=== PATIENT | male | born 1965 | race Caucasian/White ===

== ENCOUNTER 2019-08-07 12:18 | Outpatient (CLI) | payer OTHER | END 2019-08-07 12:19 | disposition critical access hospital (66) | LOC: EMS 12:18 | PROVIDERS: ATTEND Surgery | DX: R41.82 Altered mental status, unspecified (principal) | CPT/HCPCS: A0425; A0429 ==

== ENCOUNTER 2019-08-07 12:41 | Emergency (ER) | payer OTHER ==
[2019-08-07] MEDS ORDERED: SODIUM CHLORIDE 0.9% 1,000 ML IV ONE ×2 (12:58)
[2019-08-07 13:13] LABS: BASOPHILS % (AUTO) 0.4 %; PLT - PLATELET COUNT 80 10^3/uL (130-450)
[2019-08-07 13:18] LABS: LYMPHOCYTES % (AUTO) 12.9 %; MEAN CORPUSCULAR HEMOGLOBIN 25.8 pg (27.0-31.0); MEAN CORPUSCULAR HGB CONC 31.1 g/dL (32.0-36.0); MONOCYTES # (AUTO) 0.6 10^3/uL (0.0-1.0); MONOCYTES % (AUTO) 7.4 %; NEUTROPHILS # (AUTO) 6.3 10^3/uL (1.5-6.6); NEUTROPHILS % (AUTO) 78.5 %; RED BLOOD COUNT 3.88 10^6/uL (4.70-6.10)
--- NOTE | 2019-08-07 13:18 | ED Physician Documentation ---
History of Present Illness - Stated complaint Stated Complaint: MHE - Chief complaint Chief Complaint: Neuro - History obtained from History obtained from: Patient, EMS - History of Present Illness Timing: Unknown Pain level max: 0 Pain level now: 0 - Additonal information Additional information: 54-year-old male was found outside of [address] altered and confused. He was brought here for evaluation. He does not know his medical history or medications. Unclear if he sees a doctor or not. Has open sores on the bilateral lower extremities per EMS. Review of Systems Unable to obtain: AMS, Confused Constitutional: reports: Fever GI: denies: Vomiting PD PAST MEDICAL HISTORY - Past Medical History Other Past Medical History: Unknown - Past Surgical History Other past surgical history: Unknown - Social History Additional Social History: Unknown - Family History Family history: reports: Other (unknown) PD ED PE NORMAL - Vitals Vital signs reviewed: Yes - General General: No acute distress, Well developed/nourished, Other (alert, oriented to person and place) - HEENT HEENT: Atraumatic, PERRL, Ears normal, Moist mucous membranes - Neck Neck: Supple, no meningeal sign, Other (FROM without pain) - Cardiac Cardiac: RRR - Respiratory Respiratory: No respiratory distress, Other (rhonchi B) - Abdomen Abdomen: Soft, Non tender, Non distended - Back Back: No spinal TTP - Derm Derm: Warm and dry, Other (open sores to the B LE. no signs of infection) - Extremities Extremities: No deformity - Neuro Neuro: Other (alert) - Psych Psych: Other (flat) Results - Vitals Vitals: Vital Signs - 24 hr 08/07/19 08/07/19 08/07/19 12:48 13:22 14:07 Temperature 36.9 C 36.3 C L Heart Rate 100 87 Respiratory 20 20 Rate Blood Pressure 120/48 L 112/41 L O2 Saturation 99 97 08/07/19 08/07/19 08/07/19 15:33 15:37 16:00 Temperature 36.5 C Heart Rate 94 98 97 Respiratory 20 20 17 Rate Blood Pressure 104/41 L 114/45 L 112/47 L O2 Saturation 100 100 97 08/07/19 08/07/19 08/07/19 16:30 17:00 18:17 Temperature 37.1 C Heart Rate 101 H 100 101 H Respiratory 18 17 16 Rate Blood Pressure 120/47 L 110/43 L 118/46 L O2 Saturation 98 96 08/07/19 18:21 Temperature 37.1 C Heart Rate 102 H Respiratory 22 Rate Blood Pressure 118/46 L O2 Saturation 98 Oxygen O2 Source Room air - EKG (time done) 1327 Rate: Rate (enter#) (96) Rhythm: NSR [place]: Normal Intervals: Normal [place] QRS: Normal Ischemia: Normal ST segments - Labs Labs: Laboratory Tests 08/07/19 08/07/19 08/07/19 12:50 12:58 12:58 WBC 8.0 RBC 3.88 L Hgb 10.0 L Hct 32.2 L MCV 83.0 MCH 25.8 L MCHC 31.1 L RDW 21.0 H Plt Count 80 L Neut # (Auto) 6.3 Lymph # (Auto) 1.0 L Harmon # (Auto) 0.6 Eos # (Auto) 0.0 Baso # (Auto) 0.0 Absolute Nucleated RBC 0.00 Nucleated RBC % 0.0 PT INR APTT Sodium 135 Potassium 4.2 Chloride 101 Carbon Dioxide 23 Anion Gap 11.0 BUN 67 H Creatinine 1.7 H Estimated GFR (MDRD) 42 L Glucose 135 H Lactic Acid Calcium 8.1 L Total Bilirubin 1.9 H AST 22 ALT 12 Alkaline Phosphatase 41 L Ammonia Total Protein 6.8 Albumin 2.3 L Globulin 4.5 H Albumin/Globulin Ratio 0.5 L Lipase 28 TSH Urine Color Urine Clarity Urine pH Ur Specific [place] Urine Protein Urine Glucose (UA) Urine Ketones Urine Occult Blood Urine Nitrite Urine Bilirubin Urine Urobilinogen Ur Leukocyte Esterase Urine RBC Urine WBC Ur Squamous Epith Cells Amorphous Sediment Urine Bacteria Urine Casts Ur Microscopic Review Urine Culture Comments Salicylates < 6.0 Urine Opiates Screen Ur Oxycodone Screen Urine Methadone Screen Ur Propoxyphene Screen Acetaminophen < 10 L Ur Barbiturates Screen Ur Tricyclics Screen Ur Phencyclidine Scrn Ur Amphetamine Screen U Methamphetamines Scrn U Benzodiazepines Scrn Urine Cocaine Screen U Cannabinoids Screen Ethyl Alcohol < 5.0 Blood Type Blood Type Recheck O POSITIVE 08/07/19 08/07/19 08/07/19 12:58 12:58 12:58 WBC RBC Hgb Hct MCV MCH MCHC RDW Plt Count Neut # (Auto) Lymph # (Auto) Harmon # (Auto) Eos # (Auto) Baso # (Auto) Absolute Nucleated RBC Nucleated RBC % PT 18.8 H INR 1.7 H APTT 30.3 Sodium Potassium Chloride Carbon Dioxide Anion Gap BUN Creatinine Estimated GFR (MDRD) Glucose Lactic Acid 1.7 Calcium Total Bilirubin AST ALT Alkaline Phosphatase Ammonia Total Protein Albumin Globulin Albumin/Globulin Ratio Lipase TSH 2.57 Urine Color Urine Clarity Urine pH Ur Specific [place] Urine Protein Urine Glucose (UA) Urine Ketones Urine Occult Blood Urine Nitrite Urine Bilirubin Urine Urobilinogen Ur Leukocyte Esterase Urine RBC Urine WBC Ur Squamous Epith Cells Amorphous Sediment Urine Bacteria Urine Casts Ur Microscopic Review Urine Culture Comments Salicylates Urine Opiates Screen Ur Oxycodone Screen Urine Methadone Screen Ur Propoxyphene Screen Acetaminophen Ur Barbiturates Screen Ur Tricyclics Screen Ur Phencyclidine Scrn Ur Amphetamine Screen U Methamphetamines Scrn U Benzodiazepines Scrn Urine Cocaine Screen U Cannabinoids Screen Ethyl Alcohol Blood Type Blood Type Recheck 08/07/19 08/07/19 08/07/19 14:08 16:43 16:55 WBC RBC Hgb Hct MCV MCH MCHC RDW Plt Count Neut # (Auto) Lymph # (Auto) Harmon # (Auto) Eos # (Auto) Baso # (Auto) Absolute Nucleated RBC Nucleated RBC % PT INR APTT Sodium Potassium Chloride Carbon Dioxide Anion Gap BUN Creatinine Estimated GFR (MDRD) Glucose Lactic Acid Calcium Total Bilirubin AST ALT Alkaline Phosphatase Ammonia 10.4 Total Protein Albumin Globulin Albumin/Globulin Ratio Lipase TSH Urine Color BROWN Urine Clarity CLOUDY Urine pH 5.0 Ur Specific [place] 1.025 Urine Protein 30 H Urine Glucose (UA) NEGATIVE Urine Ketones NEGATIVE Urine Occult Blood LARGE H Urine Nitrite NEGATIVE Urine Bilirubin NEGATIVE Urine Urobilinogen 2 H Ur Leukocyte Esterase NEGATIVE Urine RBC 11-25 H Urine WBC 4-5 Ur Squamous Epith Cells NONE SEEN Amorphous Sediment Few Urine Bacteria Few Urine Casts 0-2 WBC Casts Ur Microscopic Review INDICATED Urine Culture Comments NOT INDICATED Salicylates Urine Opiates Screen NEGATIVE Ur Oxycodone Screen NEGATIVE Urine Methadone Screen NEGATIVE Ur Propoxyphene Screen NEGATIVE Acetaminophen Ur Barbiturates Screen NEGATIVE Ur Tricyclics Screen NEGATIVE Ur Phencyclidine Scrn NEGATIVE Ur Amphetamine Screen NEGATIVE U Methamphetamines Scrn NEGATIVE U Benzodiazepines Scrn NEGATIVE Urine Cocaine Screen NEGATIVE U Cannabinoids Screen NEGATIVE Ethyl Alcohol Blood Type O POSITIVE Blood Type Recheck - Rads (name of study) cxr Radiology: Prelim report reviewed, EMP read contemporaneously, See rad report (Mild patchy bibasilar atelectasis. ) head CT Radiology: Prelim report reviewed, EMP read contemporaneously, See rad report (There is hyperdensity demonstrated within the cortex of the mid left temporal lobe with subcortical white matter hypodensities and questionable mild associated volume loss suspicious for an area of cortical necrosis and chronic ischemia. Recommend correlation with history. 2. There is no superimposed acute intracranial abnormality. ) c-spine CT Radiology: Prelim report reviewed, EMP read contemporaneously, See rad report (No acute abnormality) PD MEDICAL DECISION MAKING - ED course Complexity details: reviewed results, re-evaluated patient, considered differential, d/w patient, d/w government operations consultant ED course: Initial temperature of 39.9 was mis-documented by the nurse. His actual temperature was 36.9. This was not discovered until after the septic work-up was begun. Patient with abnormal hyperdensity in his CT scan of the head. I was concerned for an intracranial hemorrhage and contacted [facility]. [facility], Dr. Rufino Roper, believes that this is likely chronic calcification, they recommend correlation with history. There is no history available as he is continuing to be altered with an abnormal CT, we will continue with transfer to [facility]. Dr. Burnette graciously accepts in transfer. 16[facility], [facility] paperwork filled out. A banana bag and a unit of FFP were also given to the patient. Departure - Departure Disposition: 02 Transfer Acute Care Hosp Clinical Impression: Intracranial hemorrhage, Thrombocytopenia Altered mental status Qualifiers: Altered mental status type: unspecified Qualified Code(s): R41.82 - Altered mental status, unspecified Condition: Stable Discharge Date/Time: 08/07/19 18:40
[2019-08-07 13:27] LABS: INR 1.7 (0.8-1.2); PT - PROTHROMBIN TIME 18.8 secs (9.9-12.6)
[2019-08-07 13:34] LABS: PARTIAL THROMBOPLASTIN TIME 30.3 secs (24.9-33.3)
--- NOTE | 2019-08-07 13:38 | XRAY Report ---
Reason: fever Procedure Date: 08/07/2019 Accession Number: [id number] / [id number] Procedure: XR - Chest 1 View X-Ray CPT Code: 26920 FULL RESULT: EXAM: CHEST RADIOGRAPHY EXAM DATE: 08/07/2019 01:23 PM. CLINICAL HISTORY: Fever. COMPARISON: None available. TECHNIQUE: 1 view. FINDINGS: Cardiac leads over the chest. The patient is rotated to the right. The lungs are hypoexpanded, which accentuates the cardiac silhouette and bronchovascular markings. Mild patchy bibasilar opacities likely representing atelectasis. No focal consolidation, pleural effusion, or pneumothorax visualized. IMPRESSION: Mild patchy bibasilar atelectasis. [facility]
[2019-08-07 13:45] LABS: ACETAMINOPHEN < 10 ug/mL (10-30); ALBUMIN 2.3 g/dL (3.2-5.5); ALBUMIN/GLOBULIN RATIO 0.5 (1.0-2.2); ALKALINE PHOSPHATASE 41 IU/L (42-121); ALT ALANINE AMINOTRANSFERASE 12 IU/L (10-60); AST ASPARTATE AMINOTRANSFERASE 22 IU/L (10-42); BILIRUBIN,TOTAL 1.9 mg/dL (0.2-1.0); BUN - BLOOD UREA NITROGEN 67 mg/dL (6-20); CALCIUM 8.1 mg/dL (8.5-10.3); CARBON DIOXIDE - CO2 23 mmol/L (21-32); CHLORIDE 101 mmol/L (101-111); CREATININE 1.7 mg/dL (0.6-1.2); GFR - MDRD 42 (>89); GLUCOSE 135 mg/dL (70-100); LIPASE 28 U/L (22-51); SALICYLATE < 6.0 mg/dL; SODIUM 135 mmol/L (135-145); TOTAL PROTEIN 6.8 g/dL (6.7-8.2)
[2019-08-07 14:17] LABS: MUDS CUTOFF CONCENTRATIONS CUTOFF CONC BELOW:
[2019-08-07 14:27] LABS: GLUCOSE, URINE (UA) NEGATIVE (NEGATIVE); KETONES,URINE (UA) NEGATIVE (NEGATIVE); LEUKOCYTE ESTERASE, URINE NEGATIVE (NEGATIVE); NITRITE,URINE NEGATIVE (NEGATIVE); OCCULT BLOOD,URINE LARGE (NEGATIVE); PROTEIN,URINE 30 mg/dL (NEGATIVE); UROBILINOGEN,URINE 2 E.U./dL (NORMAL)
[2019-08-07 14:31] LABS: CLARITY,URINE CLOUDY (CLEAR)
[2019-08-07 14:34] LABS: BILIRUBIN,URINE NEGATIVE (NEGATIVE); ICTOTEST,URINE NEGATIVE
[2019-08-07 14:40] LABS: AMPHETAMINE SCREEN,URINE NEGATIVE (NEGATIVE); BENZODIAZEPINES SCREEN, URINE NEGATIVE (NEGATIVE); COCAINE SCREEN URINE NEGATIVE (NEGATIVE); METHADONE SCREEN, URINE NEGATIVE (NEGATIVE); METHAMPHETAMINES SCREEN, URINE NEGATIVE (NEGATIVE); OPIATE SCREEN, URINE NEGATIVE (NEGATIVE); OXYCODONE SCREEN, URINE NEGATIVE (NEGATIVE); PROPOXYPHENE SCREEN, URINE NEGATIVE (NEGATIVE); TRICYCLIC ANTIDEPRESSANT,URINE NEGATIVE (NEGATIVE)
[2019-08-07 14:49] LABS: BACTERIA,URINE Few /HPF (None Seen); SQUAMOUS EPITHELIAL CELL,UR NONE SEEN (<= Few)
[2019-08-07 14:50] LABS: AMORPHOUS SEDIMENT,UR Few /LPF; CASTS, URINE 0-2 WBC Casts /LPF
[2019-08-07] MEDS ORDERED: BACITRACIN ZINC OINT 14 GM TOP STA (15:41)
[2019-08-07] MEDS ORDERED: FOLIC ACID INJ 1 MG, THIAMINE INJ 100 MG, MAGNESIUM SULFATE 2 GM, MULTIVITAMIN 10 ML in... IV STA ×5 (15:52)
--- NOTE | 2019-08-07 16:39 | CT Report ---
Reason: ALOC Procedure Date: 08/07/2019 Accession Number: [id number] / [id number] Procedure: CT - HEAD WO CPT Code: FULL RESULT: EXAM: CT HEAD WITHOUT CONTRAST. EXAM DATE: 08/07/2019 04:15 PM. CLINICAL HISTORY: Altered level of consciousness. COMPARISON: None. TECHNIQUE: Multiaxial CT images were obtained from the foramen magnum to the vertex. Reformats: Sagittal and coronal. IV contrast: None. In accordance with CT protocol optimization, one or more of the following dose reduction techniques were utilized for this exam: automated exposure control, adjustment of mA and/or KV based on patient size, or use of iterative reconstructive technique. FINDINGS: The bilateral mastoid air cells are normally aerated. The imaged portions of the paranasal sinuses are normally aerated. There is no acute fracture of the calvaria. The imaged portions of the orbits are normal in appearance. There is hyperdensity demonstrated within the cortex of the left temporal lobe (8-16, 3). There is subcortical hypodensity present at this location and there appears to be mild overall focal volume loss. 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 Recommend correlation with history. There is no significant generalized hemiatrophy to suggest a Sturge-Glover like condition. The imaged portions of the orbits are normal in appearance. IMPRESSION: 1. There is hyperdensity demonstrated within the cortex of the mid left temporal lobe with subcortical white matter hypodensities and questionable mild associated volume loss suspicious for an area of cortical necrosis and chronic ischemia. Recommend correlation with history. If the patient has persistent symptoms and additional imaging is desired, it could be obtained with MRI of the brain as deemed clinically appropriate. 2. There is no superimposed acute intracranial abnormality. The call report notification system was initiated by Dr. Rufino Roper at 04:37 PM on 08/07/2019. The above call report findings were discussed with Christian Rosado by Dr. Rufino Roper at 04:42 PM on 08/07/2019.
[2019-08-07] MEDS ORDERED: levETIRAcetam INJ 1,000 MG in SODIUM CHLORIDE 0.9% 100ML 100 ML IV STA (16:41)
--- NOTE | 2019-08-07 18:10 | CT Report ---
Reason: intracranial hemorrhage Procedure Date: 08/07/2019 Accession Number: [id number] / [id number] Procedure: CT - CERVICAL SPINE WO CPT Code: FULL RESULT: EXAM: CT CERVICAL SPINE WITHOUT CONTRAST DATE: 08/07/2019 05:08 PM. HISTORY: Trauma. Intercranial hemorrhage. COMPARISONS: HEAD W/O 08/07/2019 4:09 PM. TECHNIQUE: Thin-section axial images were acquired of the cervical spine without contrast. Post-processing: Coronal and sagittal reformats. Other: None. In accordance with CT protocol optimization, one or more of the following dose reduction techniques were utilized for this exam: automated exposure control, adjustment of mA and/or KV based on patient size, or use of iterative reconstructive technique. FINDINGS: Evaluation of the head, please see [place] dictated CT head of the same date. ALIGNMENT: Normal. BONES: No acute fracture. 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 The vertebral bodies are normal in height. No suspicious osseous lesions. PARASPINAL SOFT TISSUES: Unremarkable. UPPER CHEST: The lung apices are clear. There is debris within the trachea. DISKS/JOINTS: Mild multilevel disk height loss. There is also multilevel uncovertebral and facet joint arthropathy. No significant central canal stenosis. Mild left neuroforaminal stenosis at C3-C4. Mild left neuroforaminal stenosis at C5-C6. No significant neuroforaminal stenosis at the remaining levels. IMPRESSION: 1. No acute fracture or traumatic malalignment. 2. There is debris within the trachea. Patient at risk for aspiration. RAD[facility]
[2019-08-07 18:20] VITALS: BP 118/46
== END 2019-08-07 18:40 | disposition short-term general hospital (02) ==
LOC: EDUNIT# → ED 12:41
DX: I62.9 Nontraumatic intracranial hemorrhage, unspecified (principal); D69.6 Thrombocytopenia, unspecified; R41.82 Altered mental status, unspecified; L98.9 Disorder of the skin and subcutaneous tissue, unspecified
CPT/HCPCS: 36415; 36430; 51701; 70450; 71045; 72125; 80320; 80329; 81001; 82140; 83605; 83690; 85610; 85730; 86900; 86901; 87040; 87077; 87181; 93005; 96361; 96365; 96375; 99285; A9270; J3411; P9017; 80053; 80306; 80307; 81003; 84443; 85025; 87086